=== PATIENT | male | born 1960 | race Caucasian/White ===

== ENCOUNTER 2024-02-25 22:31 | Inpatient (IN) | payer OTHER ==
[2024-02-25 23:33] VITALS: BMI 30.4
[2024-02-25] MEDS ORDERED: POLYETHYLENE GLYCOL (HEALTHYLAX) 3350 17 GM PACKET PO PRN (23:49)
[2024-02-25] MEDS ORDERED: IBUPROFEN 600 MG TABLET (FP) PO PRN (23:49)
[2024-02-25] MEDS ORDERED: MAG HYDROX/AL HYDROX/SIMETH 30 ML UNIT-DOSE CUP PO PRN (23:49)
[2024-02-25] MEDS ORDERED: guaiFENesin 600 MG TABLET.ER (FP) PO PRN (23:49)
[2024-02-25] MEDS ORDERED: BENZONATATE 200 MG CAPSULE PO PRN (23:49)
[2024-02-25] MEDS ORDERED: DICYCLOMINE HCL 10 MG CAPSULE PO PRN (23:49)
[2024-02-25] MEDS ORDERED: BENZOCAINE/MENTHOL (CHLORASEPTIC ) LOZENGE MM PRN (23:49)
[2024-02-25] MEDS ORDERED: ACETAMINOPHEN 325 MG TABLET (FP) PO PRN (23:49)
[2024-02-25] MEDS ORDERED: NICOTINE POLACRILEX 2 MG LOZENGE BC PRN (23:49)
[2024-02-25] MEDS ORDERED: IBUPROFEN 400 MG TABLET (FP) PO PRN (23:49)
[2024-02-25] MEDS ORDERED: ONDANSETRON *ODT* 4 MG TABLET SL PRN (23:49)
[2024-02-25] MEDS ORDERED: NICOTINE POLACRILEX 2 MG GUM BUC PRN (23:49)
[2024-02-25] MEDS ORDERED: LOPERAMIDE HCL 2 MG CAPSULE PO PRN (23:49)
[2024-02-25] MEDS ORDERED: MAGNESIUM HYDROX 2400MG/30ML ORAL SUSPENSION 30 ML CUP PO PRN (23:49)
[2024-02-25] MEDS ORDERED: BISMUTH SUBSALICYLATE 524 MG/30 ML PO PRN (23:49)
[2024-02-26] MEDS: PRENATAL VITAMINS W/ FOLIC ACID TABLET (FP) PO SCH (09:22)
[2024-02-26] MEDS ORDERED: diazePAM 5 MG TABLET PO PRN (09:54)
[2024-02-26] MEDS: diazePAM 5 MG TABLET PO SCH (10:22)
[2024-02-26 10:24] LABS: HEMATOCRIT 36.7 % (35.4-49); HEMOGLOBIN 12.4 GM/dL (11.7-16.9); MCH 34.9 pg (25.7-33.7); MCHC 33.8 g/dl (32.0-35.9); MEAN CELL VOLUME 103.3 fl (80-96); MEAN PLT VOLUME 8.3 fl (7.5-11.1); PLATELET COUNT 169 10^3/uL (134-434); RBC 3.55 M/mm3 (4.00-5.60); RDW 15.2 % (11.9-15.9); WHITE BLOOD COUNT 4.2 K/mm3 (4.0-10.0)
[2024-02-26 10:26] LABS: CHLORIDE 104 mmol/L (98-107); POTASSIUM 3.7 mmol/L (3.5-5.1); SODIUM 140 mmol/L (136-145)
[2024-02-26 10:34] LABS: ALBUMIN 3.2 g/dl (3.4-5.0); ANION GAP 6 mmol/L (4-13); BLOOD UREA NITROGEN 21.9 mg/dL (7-18); CALCIUM 9.3 mg/dL (8.5-10.1); CO2 30 mmol/L (21-32); GLUCOSE,RANDOM 127 mg/dL (74-106)
[2024-02-26 10:37] LABS: CREATININE 0.6 mg/dL (0.55-1.3); SGPT/ALT 77 U/L (13-61)
[2024-02-26 10:38] LABS: SGOT/AST 75 U/L (15-37)
[2024-02-26 10:39] LABS: TOT PROT 6.4 g/dl (6.4-8.2)
[2024-02-26 10:40] LABS: ALK PHOS 114 U/L (45-117)
[2024-02-26 10:58] LABS: BILIRUBIN,TOTAL 1.2 mg/dL (0.2-1)
[2024-02-26] MEDS: cloNIDine HCL 0.1 MG TABLET PO PRN (11:19)
[2024-02-26] MEDS: METHOCARBAMOL 500 MG TABLET PO PRN (22:36)
[2024-02-26] MEDS: hydrOXYzine PAMOATE 25 MG CAPSULE (FP) PO PRN (22:36)
[2024-02-26] MEDS: THIAMINE 100 MG TABLET PO SCH (22:37)
[2024-02-26] MEDS: MELATONIN 5 MG TABLETS PO SCH (22:37)
[2024-02-28] MEDS: diazePAM 5 MG TABLET PO SCH (05:27)
[2024-02-29] MEDS: diazePAM 5 MG TABLET PO SCH (05:25)
[2024-02-29] MEDS: amLODIPine BESYLATE 5 MG TABLET (FP) PO SCH (11:22)
[2024-03-01] MEDS: diazePAM 5 MG TABLET PO ONE (05:16)
[2024-03-01 08:52] VITALS: BP 109/76; PULSE 76; RESP 18; TEMP 96.8
== END 2024-03-01 10:06 | disposition other institution (70) | DRG 775 ==
LOC: YASAS 22:31 → Y3N 02-26 01:44
PROVIDERS: ADMIT Allergy & Immunology; ATTEND Surgery
PROC: HZ2ZZZZ Detoxification Services for Substance Abuse Treatment (ICD-10-PCS; principal; 2024-02-26)
DX: F10.230 Alcohol dependence with withdrawal, uncomplicated (principal); F17.210 Nicotine dependence, cigarettes, uncomplicated; I10 Essential (primary) hypertension; R74.01 Elevation of levels of liver transaminase levels
CPT/HCPCS: 36415; 80053; 80305; 80307; 83036; 85027; 86780; 93005; 93010

== ENCOUNTER 2024-10-13 12:57 | Inpatient (IN) | payer BC ==
[2024-10-13 13:39] VITALS: BMI 30.4
[2024-10-13] MEDS ORDERED: ACETAMINOPHEN 325 MG TABLET (FP) PO PRN (14:08)
[2024-10-13] MEDS ORDERED: IBUPROFEN 600 MG TABLET (FP) PO PRN (14:08)
[2024-10-13] MEDS ORDERED: MAG HYDROX/AL HYDROX/SIMETH 30 ML UNIT-DOSE CUP PO PRN (14:08)
[2024-10-13] MEDS ORDERED: NICOTINE POLACRILEX 2 MG GUM BUC PRN (14:08)
[2024-10-13] MEDS ORDERED: BENZOCAINE/MENTHOL (CHLORASEPTIC ) LOZENGE MM PRN (14:08)
[2024-10-13] MEDS ORDERED: METHOCARBAMOL 500 MG TABLET PO PRN (14:08)
[2024-10-13] MEDS ORDERED: DICYCLOMINE HCL 10 MG CAPSULE PO PRN (14:08)
[2024-10-13] MEDS ORDERED: ONDANSETRON *ODT* 4 MG TABLET SL PRN (14:08)
[2024-10-13] MEDS ORDERED: chlordiazePOXIDE HCL 25 MG CAPSULE PO PRN (14:08)
[2024-10-13] MEDS ORDERED: POLYETHYLENE GLYCOL (HEALTHYLAX) 3350 17 GM PACKET PO PRN (14:08)
[2024-10-13] MEDS ORDERED: BISMUTH SUBSALICYLATE 262 MG/15 ML BTL PO PRN (14:08)
[2024-10-13] MEDS ORDERED: guaiFENesin 600 MG TABLET.ER (FP) PO PRN (14:08)
[2024-10-13] MEDS ORDERED: IBUPROFEN 400 MG TABLET (FP) PO PRN (14:08)
[2024-10-13] MEDS ORDERED: NALOXONE (NARCAN) HCL 4 MG/0.1 ML SPRAY NS PRN (14:08)
[2024-10-13] MEDS ORDERED: BENZONATATE 200 MG CAPSULE PO PRN (14:08)
[2024-10-13] MEDS ORDERED: hydrOXYzine PAMOATE 25 MG CAPSULE (FP) PO PRN (14:08)
[2024-10-13] MEDS ORDERED: LOPERAMIDE HCL 2 MG CAPSULE PO PRN (14:08)
[2024-10-13] MEDS ORDERED: MAGNESIUM HYDROX 2400MG/30ML ORAL SUSPENSION 30 ML CUP PO PRN (14:08)
[2024-10-13] MEDS ORDERED: amLODIPine BESYLATE 5 MG TABLET (FP) ONE (15:25)
[2024-10-13] MEDS: NALTREXONE HCL 50 MG TABLET PO ONE (15:30)
[2024-10-13] MEDS: amLODIPine BESYLATE 5 MG TABLET (FP) PO SCH (15:30)
[2024-10-13] MEDS: chlordiazePOXIDE HCL 25 MG CAPSULE PO SCH (18:06)
[2024-10-13] MEDS: THIAMINE 100 MG TABLET PO SCH (22:29)
[2024-10-13] MEDS: MELATONIN 5 MG TABLETS PO SCH (22:31)
[2024-10-14] MEDS: NALTREXONE HCL 50 MG TABLET PO SCH (10:19)
[2024-10-14] MEDS: PRENATAL VITAMINS W/ FOLIC ACID TABLET (FP) PO SCH (10:19)
[2024-10-14 11:04] LABS: HEMATOCRIT 42.2 % (40.1-51.0); HEMOGLOBIN 13.8 g/dL (13.7-17.5); MCHC 32.7 g/dl (32.3-36.5); MEAN CELL VOLUME 102.7 fl (79.0-92.2); MEAN PLT VOLUME 10.4 fl (9.4-12.4); PLATELET COUNT 179 x10^3/uL (163-337); RDW 13.6 % (12.2-16.4)
[2024-10-14 11:08] LABS: POTASSIUM 3.4 mmol/L (3.5-5.1)
[2024-10-14 11:24] LABS: ALBUMIN 3.4 g/dl (3.4-5.0); CALCIUM 9.6 mg/dL (8.5-10.1)
[2024-10-14 11:29] LABS: CREATININE 0.9 mg/dL (0.55-1.3); TOT PROT 7.5 g/dl (6.4-8.2)
[2024-10-14] MEDS: POTASSIUM CHLORIDE TABS 20 MEQ TABLET.ER (FP) PO ONE (15:10)
[2024-10-14] MEDS: chlordiazePOXIDE HCL 25 MG CAPSULE PO SCH (18:42)
[2024-10-14] MEDS: LACTULOSE 20 GM/30 ML UDC (FOR ORAL USE ONLY) PO SCH (18:43)
[2024-10-14] MEDS: chlordiazePOXIDE HCL 25 MG CAPSULE PO PRN (18:46)
[2024-10-15] MEDS ORDERED: chlordiazePOXIDE HCL 25 MG CAPSULE PO SCH (05:00)
[2024-10-15] MEDS: chlordiazePOXIDE HCL 25 MG CAPSULE PO SCH (05:51)
[2024-10-15 10:06] LABS: POTASSIUM 3.4 mmol/L (3.5-5.1)
[2024-10-15 10:11] LABS: BLOOD UREA NITROGEN 11.8 mg/dL (7-18); CALCIUM 9.9 mg/dL (8.5-10.1)
[2024-10-15 10:15] LABS: CREATININE 0.6 mg/dL (0.55-1.3)
[2024-10-15] MEDS: POTASSIUM CHLORIDE TABS 20 MEQ TABLET.ER (FP) PO ONE (15:21)
[2024-10-16] MEDS ORDERED: chlordiazePOXIDE HCL 10 MG CAPSULE PO PRN
[2024-10-16] MEDS ORDERED: chlordiazePOXIDE HCL 10 MG CAPSULE PO SCH (05:00)
[2024-10-16] MEDS ORDERED: chlordiazePOXIDE HCL 25 MG CAPSULE PO SCH (05:00)
[2024-10-16] MEDS: chlordiazePOXIDE HCL 10 MG CAPSULE PO SCH (05:51)
[2024-10-16] MEDS ORDERED: SODIUM POLYSTYRENE SULFONATE 15 GM/60 ML BOTTLE PO ONE ×2 (13:36→13:45)
[2024-10-16] MEDS: LACTULOSE 20 GM/30 ML UDC (FOR ORAL USE ONLY) PO SCH (14:25)
[2024-10-17] MEDS ORDERED: chlordiazePOXIDE HCL 10 MG CAPSULE PO PRN
[2024-10-17] MEDS ORDERED: chlordiazePOXIDE HCL 10 MG CAPSULE PO SCH ×2 (05:00)
[2024-10-17] MEDS: chlordiazePOXIDE HCL 10 MG CAPSULE PO SCH (05:56)
[2024-10-17 16:47] VITALS: RESP 16
[2024-10-17 20:51] VITALS: PULSE 60
[2024-10-18] MEDS ORDERED: chlordiazePOXIDE HCL 10 MG CAPSULE PO ONE (05:00)
[2024-10-18] MEDS ORDERED: chlordiazePOXIDE HCL 10 MG CAPSULE PO SCH (05:00)
[2024-10-18] MEDS: chlordiazePOXIDE HCL 10 MG CAPSULE PO ONE (07:21)
[2024-10-18 08:38] VITALS: BP 127/71; TEMP 97.8
[2024-10-19] MEDS ORDERED: chlordiazePOXIDE HCL 10 MG CAPSULE PO ONE (05:00)
== END 2024-10-18 09:40 | disposition home or self-care (01) | DRG 897 ==
LOC: YASAS 12:57 → Y6N 14:54
PROVIDERS: ADMIT Allergy & Immunology; ATTEND Allergy & Immunology
PROC: HZ2ZZZZ Detoxification Services for Substance Abuse Treatment (ICD-10-PCS; principal; 2024-10-13)
DX: F10.230 Alcohol dependence with withdrawal, uncomplicated (principal); Z59.00 Homelessness unspecified; F17.210 Nicotine dependence, cigarettes, uncomplicated; F10.282 Alcohol dependence with alcohol-induced sleep disorder; F10.24 Alcohol dependence with alcohol-induced mood disorder; F32.A Depression, unspecified; E87.6 Hypokalemia; I10 Essential (primary) hypertension; R79.89 Other specified abnormal findings of blood chemistry; Z56.0 Unemployment, unspecified
CPT/HCPCS: 36415; 80048; 80053; 80305; 80307; 82140; 84132; 85027; 86780; 93005; 93010